=== PATIENT | male | born 1960 | race Caucasian/White ===

== ENCOUNTER 2020-01-07 08:22 | Emergency (ER) | payer BC ==
[2020-01-07] MEDS ORDERED: ONDANSETRON INJ 4 MG/2 ML VIAL IV ONE (08:37)
[2020-01-07] MEDS ORDERED: ASPIRIN (CHEWABLE) 81 MG TAB PO ONE (08:37)
[2020-01-07] MEDS ORDERED: SODIUM CHLORIDE 0.9% (FLUSH) 10 ML SYG IV PRN (08:37)
[2020-01-07] MEDS ORDERED: MORPHINE SULFATE INJ 10 MG/ML VIAL IV ONE (08:37)
[2020-01-07] MEDS: NITROGLYCERIN 0.4 MG 25 EA TAB SL PRN ×2 (08:43→09:06)
--- NOTE | 2020-01-07 08:50 | ED.PDOC ---
History of Present Illness - General Chief Complaint: Chest Pain/RI Stated Complaint: CP radiating down both arms Time Seen by Provider: 01/07/20 08:31 Source: patient, RN notes reviewed, Vital Signs reviewed Exam Limitations: no limitations - History of Present Illness Initial Comments: This is a 59-year-old male whose only significant past medical history includes multiple left shoulder surgeries and reconstructions, presenting to the emergency department today with chest pain that began around 8 AM. Pain radiates through to the back and to both arms. No previous cardiac history. He describes the pain as pressure. Pain began while at rest. He went to [place] today, but states he was too weak to lift his Bible, so he decided to come to the emergency department for evaluation. He denies any abdominal pain, vomiting, shortness of breath. No recent illnesses, cough, URI symptoms, or COVID-19 exposures. Allergies/Adverse Reactions: Allergies NO KNOWN ALLERGY Allergy (Verified 01/07/20 08:41) Home Medications: Ambulatory Orders Acetaminophen W/ Codeine [Tylenol w/Codeine 300-30 mg] 1 tab PO PRN PRN 01/07/20 Aspirin [Aspirin Enteric Coated Ad] 81 mg PO DAILY #100 tab 01/07/20 Diazepam 10 mg PO PRN PRN 01/07/20 Nabumetone 500 mg PO BID 01/07/20 RX: Nitroglycerin 0.4 mg Tab [Nitrostat] 1 ea SL .Q5M PRN #100 tab 01/07/20 Review of Systems - Review of Systems Constitutional: Denies: chills, fever EENTM: Denies: ear pain, nose congestion, throat pain Respiratory: Denies: cough, orthopnea, short of breath Cardiology: States: chest pain. Denies: edema, palpitations, syncope Gastrointestinal/Abdominal: Denies: constipation, diarrhea, nausea, vomiting Genitourinary: Denies: dysuria, hematuria Musculoskeletal: States: back pain. Denies: joint pain, joint swelling, muscle pain, muscle stiffness, neck pain Neurological: States: headache, weakness. Denies: paresthesia, pre-existing deficit, tingling Family Medical History - Family History Mother Family History: No Known Physical Exam - Physical Exam General Appearance: Alert, Comfortable Eyes, Ears, Nose, Throat Exam: PERRL/EOMI, normal ENT inspection, pharynx normal Neck: full range of motion, supple Respiratory: lungs clear, normal breath sounds, no respiratory distress, no accessory muscle use Cardiovascular/Chest: normal peripheral pulses, regular rate, rhythm, no edema, no gallop, no JVD, no murmur Peripheral Pulses: radial,right: 2+, radial,left: 2+ Gastrointestinal/Abdominal: non tender, soft Extremity: non-tender, normal inspection, no pedal edema Neurologic: no motor/sensory deficits, alert, normal mood/affect, oriented x 3 Skin Exam: normal color, warm/dry Progress - Progress Progress: 01/07/20 09:01 Pain improved with nitroglycerin and morphine. 01/07/20 11:02 Rechecked. Patient remains pain-free. Blood pressure improved. I discussed repeat EKG/troponin results. I explained that the troponin is up trended slightly, but is still within normal range. Patient at this time is adamant that he goes home. He states "I am not staying in the hospital". I explained that it is very important that he follow-up with his primary care doctor and to call a instructor hairspring in follow-up later this week. Will discharge home with aspirin and nitroglycerin. Strict warnings given to return to the emergency room for worsening chest pain, shortness of breath, recurrent weakness, nausea/vomiting, or any other concerns. DDX: ACS, pancreatitis, PUD, low supicion for PE/dissection MDM: Patient presenting with subxiphoid and lower chest pain radiating through to the back. No previous history of ACS. EKGs with nonspecific changes, troponins negative x2, although slightly uptrending. Patient was completely pain-free after nitroglycerin. I explained my concern about possible ACS, but the patient was adamant that he was going home today. He refused to stay in the hospital. I stressed the importance of follow-up with cardiology to discuss possible provocative testing later this week. Strict warnings given to return the emergency room for worsening. - Results/Orders Results/Orders: EKG reviewed by me at 8:31 AM. Normal sinus rhythm, 89, normal axis, borderline QTC at 474, nonspecific T wave changes, no ST segment elevations Repeat EKG reviewed by me at 1012. Normal sinus rhythm, rate of 65, normal axis, normal intervals, nonspecific T wave changes, no ST segment elevations or depressions. EXAM: Chest,1 View CLINICAL INDICATION: Chest pain COMPARISON: There is no previous study for comparison. FINDINGS: A single view of the chest was obtained. The heart size is normal. The pulmonary vascularity is unremarkable. The lungs are clear. There is no consolidation, infiltrate, pleural effusion, or pneumothorax. IMPRESSION: No evidence of active pulmonary disease. Laboratory Results - last 24 hr 01/07/20 01/07/20 01/07/20 08:44 08:44 08:44 WBC 5.5 Cancelled RBC 5.15 Cancelled Hgb 15.1 Cancelled Hct 44.7 Cancelled MCV 86.9 Cancelled MCH 29.3 Cancelled MCHC 33.7 Cancelled RDW 14.2 Cancelled Plt Count 255 Cancelled MPV 8.7 Cancelled Absolute Neuts (auto) 2.80 Cancelled Absolute Lymphs (auto) 2.00 Cancelled Absolute Monos (auto) 0.50 Cancelled Absolute Eos (auto) 0.10 Cancelled Absolute Basos (auto) 0.00 Cancelled Neutrophils % 51.4 Cancelled Lymphocytes % 36.8 Cancelled Monocytes % 9.8 H Cancelled Eosinophils % 1.5 Cancelled Basophils % 0.5 Cancelled Differential Comment Cancelled RBC Morphology Cancelled PT 9.9 INR 1.00 PTT (SP) 26.0 Sodium 141 Potassium 3.9 Chloride 106 Carbon Dioxide 26 Anion Gap 12.9 BUN 22 H Creatinine 1.07 BUN/Creatinine Ratio 20.6 H Random Glucose 108 H Serum Osmolality 285.1 Calcium 8.9 Magnesium 2.0 Total Bilirubin 0.8 Direct Bilirubin 0.1 Indirect Bilirubin 0.7 AST 28 ALT 34 Alkaline Phosphatase 61 Creatine Kinase 384 H* CK-MB (CK-2) 5.2 H* CK-MB (CK-2) % 1.35 Troponin I 0.02 Cancelled B-Natriuretic Peptide < 5.0 Serum Total Protein 7.1 Albumin 4.2 Globulin Cancelled Albumin/Globulin Ratio Cancelled 01/07/20 10:18 WBC RBC Hgb Hct MCV MCH MCHC RDW Plt Count MPV Absolute Neuts (auto) Absolute Lymphs (auto) Absolute Monos (auto) Absolute Eos (auto) Absolute Basos (auto) Neutrophils % Lymphocytes % Monocytes % Eosinophils % Basophils % Differential Comment RBC Morphology PT INR PTT (SP) Sodium Potassium Chloride Carbon Dioxide Anion Gap BUN Creatinine BUN/Creatinine Ratio Random Glucose Serum Osmolality Calcium Magnesium Total Bilirubin Direct Bilirubin Indirect Bilirubin AST ALT Alkaline Phosphatase Creatine Kinase CK-MB (CK-2) CK-MB (CK-2) % Troponin I 0.04 B-Natriuretic Peptide Serum Total Protein Albumin Globulin Albumin/Globulin Ratio Electronically signed by: Laron Mason MD 01/07/2020 8:55 AM CDT Departure - Departure Clinical Impression: Acute chest pain Time of Disposition: 11:06 Disposition: Discharge to Home or Self Care Departure Forms: ED Discharge - Pt. Copy, Patient Portal Self Enrollment Instructions: DI for Chest Pain Diet: resume usual diet Activity: increase activity as tolerated Referrals: Woody Phillips III, MD [Primary Care Provider] - 1-2 Days RIGO MCELROY MD [Consulting Staff] - 1-5 Days TAVON GO [Referring] - 1-5 Days Prescriptions: Aspirin [Aspirin Enteric Coated Ad] 81 mg PO DAILY #100 tab RX: Nitroglycerin 0.4 mg Tab [Nitrostat] 1 ea SL .Q5M PRN #100 tab PRN Reason: Chest Pain Home Medications: Ambulatory Orders Acetaminophen W/ Codeine [Tylenol w/Codeine 300-30 mg] 1 tab PO PRN PRN 01/07/20 Aspirin [Aspirin Enteric Coated Ad] 81 mg PO DAILY #100 tab 01/07/20 Diazepam 10 mg PO PRN PRN 01/07/20 Nabumetone 500 mg PO BID 01/07/20 RX: Nitroglycerin 0.4 mg Tab [Nitrostat] 1 ea SL .Q5M PRN #100 tab 01/07/20 Additional Instructions: Return to the emergency room immediately for worsening chest pain, shortness of breath, increased weakness, or any other concerns. Call 911 for chest pain that does not improve after 3 nitroglycerin. Follow-up with your primary doctor tomorrow to discuss cardiology referral. It is important that you see a instructor hairspring later this week to discuss outpatient stress testing.
--- NOTE | 2020-01-07 08:57 | RAD ---
EXAM: Chest,1 View CLINICAL INDICATION: Chest pain COMPARISON: There is no previous study for comparison. FINDINGS: A single view of the chest was obtained. The heart size is normal. The pulmonary vascularity is unremarkable. The lungs are clear. There is no consolidation, infiltrate, pleural effusion, or pneumothorax. IMPRESSION: No evidence of active pulmonary disease. Electronically signed by: Laron Mason MD 01/07/2020 8:55 AM CDT
[2020-01-07] MEDS ORDERED: ALUM & MAG HYDROX-SIMETHICONE 30 ML, LIDOCAINE VISCOUS 2% 15 ML PO ONE ×2 (09:35)
[2020-01-07 11:08] VITALS: BP 112/76; O2SAT 98
[2020-01-07 11:13] VITALS: TEMP 97.2
== END 2020-01-07 11:13 | disposition home or self-care (01) ==
LOC: ER 08:22
DX: R07.9 Chest pain, unspecified (principal); R53.1 Weakness; Z79.82 Long term (current) use of aspirin
CPT/HCPCS: 36415; 71045; 80048; 80076; 82550; 82553; 83880; 84484; 85025; 85610; 85730; 93005; 94760; J2270; J2405

== ENCOUNTER 2020-01-09 17:25 | Emergency (ER) | payer BC ==
[2020-01-09] MEDS ORDERED: ASPIRIN TABLET 325 MG TAB ONE (17:30)
[2020-01-09] MEDS ORDERED: ALUM & MAG HYDROX-SIMETHICONE 30 ML, LIDOCAINE VISCOUS 2% 15 ML PO ONE ×2 (17:34)
[2020-01-09] MEDS ORDERED: ASPIRIN TABLET 325 MG TAB PO ONE ×2 (17:34)
[2020-01-09] MEDS ORDERED: LIDOCAINE HCL 2% (MOUTH-THROAT) 15 ML UD ONE (17:35)
[2020-01-09] MEDS ORDERED: ALUMINUM & MAGNESIUM HYDROXIDE 30 ML UD ONE (17:35)
--- NOTE | 2020-01-09 18:26 | RAD ---
EXAM DESCRIPTION: Chest,1 View CLINICAL HISTORY: 59 years Male chest and back pain COMPARISON: 01/07/2020. FINDINGS: The cardiomediastinal silhouette appears unremarkable. No consolidating infiltrates or pleural effusions. No pneumothorax. Changes from left shoulder arthroplasty. IMPRESSION: No acute abnormality is identified. Electronically signed by: Ramiro Velazquez MD 01/09/2020 6:25 PM CDT
[2020-01-09] MEDS ORDERED: CLOPIDOGREL 75 MG TAB PO ONE (18:37)
[2020-01-09] MEDS ORDERED: NITROGLYCERIN 2% 1 GM UD TOP ONE (18:37)
[2020-01-09] MEDS ORDERED: ENOXAPARIN SODIUM 100 MG/ML SYG SUBCU ONE (18:41)
--- NOTE | 2020-01-09 18:59 | ED.PDOC ---
History of Present Illness - General Chief Complaint: Chest Pain/PR Stated Complaint: chest pain Time Seen by Provider: 01/09/20 17:26 Source: patient Exam Limitations: no limitations - History of Present Illness Initial Comments: The patient is a 59-year-old male presented emergency room secondary to the acute onset of chest pain about an hour prior to arrival. Pain is substernal and radiates to the back and both shoulders. It started while he was at rest. The patient was actually seen here 2 days ago for similar episode of chest pain. They were able to get the chest pain under control with nitroglycerin. The patient stayed for 2 sets of cardiac enzymes which were technically normal but slightly rising at the time. The patient left AGAINST MEDICAL ADVICE at that time. He had apparently not had any chest pain since his discharge until this afternoon. The patient reports he had an exercise tolerance test 5 years ago that was clean. No history of any significant coronary artery disease. No history of significant hypertension. He does have chronic pain issues related to a left shoulder surgery. The patient does take a anti-inflammatory. The patient had taken 3 nitroglycerin prior to his arrival which had taken the chest pain down from a 9 to about a 6. The patient received additional nitroglycerin here which has brought his chest pain down to around a 1. Timing/Duration: 1 hour Severity: severe Improving Factors: medication Worsening Factors: nothing Associated Symptoms: chest pain Allergies/Adverse Reactions: Allergies NO KNOWN ALLERGY Allergy (Verified 01/09/20 17:41) Home Medications: Ambulatory Orders Acetaminophen W/ Codeine [Tylenol w/Codeine 300-30 mg] 1 tab PO PRN PRN 01/07/20 Aspirin [Aspirin Enteric Coated Ad] 81 mg PO DAILY #100 tab 01/07/20 Diazepam 10 mg PO PRN PRN 01/07/20 Nabumetone 500 mg PO BID 01/07/20 Nitroglycerin 0.4 mg Tab [Nitrostat] 1 ea SL .Q5M PRN #100 tab 01/07/20 Review of Systems - Review of Systems Constitutional: States: no symptoms reported EENTM: States: no symptoms reported Respiratory: States: no symptoms reported Cardiology: States: chest pain Gastrointestinal/Abdominal: States: no symptoms reported Genitourinary: States: no symptoms reported Musculoskeletal: States: no symptoms reported Skin: States: no symptoms reported Neurological: States: no symptoms reported Endocrine: States: no symptoms reported All other Systems: No Change from Baseline Past Medical History (General) - Patient Medical History Hx Stroke: No Hx of COPD: No Hx Cardiac Disorders: No Hx Hypertension: No Hx Diabetes: No Hx Gastroesophageal Reflux: Yes Hx Cancer: No - Vaccination History Hx Tetanus, Diphtheria Vaccination: No Hx Influenza Vaccination: Yes Hx Pneumococcal Vaccination: No - Social History Hx Tobacco Use: No Hx Alcohol Use: No Hx Substance Use: No Hx Substance Use Treatment: No Hx Depression: No - Female History Patient : No Family Medical History - Family History Mother Family History: No Known Physical Exam - Physical Exam General Appearance: Alert, Anxious Eye Exam: bilateral normal Ears, Nose, Throat: hearing grossly normal, normal pharynx Neck: non-tender, supple Respiratory: lungs clear, normal breath sounds, no respiratory distress, no accessory muscle use Cardiovascular/Chest: normal peripheral pulses, regular rate, rhythm, no edema Peripheral Pulses: radial,right: 2+, radial,left: 2+ Gastrointestinal/Abdominal: non tender, soft Rectal Exam: deferred Back Exam: no CVA tenderness, no vertebral tenderness Extremity: normal range of motion - Given chronic limitations., normal inspection, no pedal edema, normal capillary refill Neurologic: roll forger II-XII nml as tested, alert, normal mood/affect, oriented x 3 Skin Exam: normal color Comments: Vital Signs - 24 hr 01/09/20 01/09/20 17:37 17:42 Temperature 98.4 F Pulse Rate [ 79 79 montoir] Respiratory 18 Rate Blood Pressure 107/69 [RA] O2 Sat by Pulse 97 Oximetry Progress - Progress Progress: 01/09/20 19:01 The patient is a 59-year-old male presented emergency room with chest pain that appears to be a non-ST elevation myocardial infarction. The patient was seen 2 days ago with chest pain. His troponin is significantly higher than it was at that time. Chest pain has greatly improved with frequent nitroglycerin dosage him. Patient is also been given a dose of aspirin, Lovenox and high-dose Plavix. The patient's vital signs are stable. The patient is being transferred to [facility] for cardiology evaluation. Acceptance is appreciated. The patient is refusing to go by ambulance at this time. Risks have been explained and i do disagree with his decision. His will be driving him. The nitroglycerin paste will be left in place. They do have instructions to remove it if he starts getting dizzy. patient has been discussed with dr dunn for the transfer. rufino chang [id number] - Results/Orders Results/Orders: 01/09/20 17:50 Telemetry .CONTINUOUS 01/09/20 18:00 EKG STAT Laboratory Results - last 24 hr 01/09/20 01/09/20 01/09/20 18:13 18:13 18:13 WBC 5.9 RBC 4.88 Hgb 14.3 Hct 42.5 MCV 87.2 MCH 29.4 MCHC 33.7 RDW 13.8 Plt Count 243 MPV 8.3 Absolute Neuts (auto) 3.00 Absolute Lymphs (auto) 2.20 Absolute Monos (auto) 0.60 Absolute Eos (auto) 0.10 Absolute Basos (auto) 0.10 Neutrophils % 50.5 Lymphocytes % 37.2 Monocytes % 9.9 H Eosinophils % 1.4 Basophils % 1.0 PT 10.0 INR 1.01 PTT (SP) 26.1 D-Dimer, Quantitative < 131 L Sodium 137 Potassium 4.6 Chloride 104 Carbon Dioxide 27 Anion Gap 10.6 L BUN 19 H Creatinine 0.90 BUN/Creatinine Ratio 21.1 H Random Glucose 93 Serum Osmolality 275.8 Calcium 9.1 Magnesium 2.0 Total Bilirubin 0.7 AST 23 ALT 31 Alkaline Phosphatase 55 Creatine Kinase 148 CK-MB (CK-2) 2.5 CK-MB (CK-2) % Not Reportable Troponin I 0.17 H* B-Natriuretic Peptide < 5.0 Serum Total Protein 6.8 Albumin 4.1 Globulin 2.7 Albumin/Globulin Ratio 1.5 Amylase 63 Lipase 33 EKG shows normal sinus rhythm at 79 bpm. Normal axis. Normal R wave progression. Possibly trace ST segment depression in V2 and V3. Borderline QT interval. No evidence of ST segment elevation. Chest x-ray shows no acute pathology. See report for details. Departure - Departure Clinical Impression: NSTEMI (non-ST elevated myocardial infarction) Disposition: Transfer to Hospital Condition: Serious Departure Forms: ED Discharge - Pt. Copy, Patient Portal Self Enrollment Referrals: Woody Phillips III, MD [Primary Care Provider] - 1-2 Weeks Home Medications: Ambulatory Orders Acetaminophen W/ Codeine [Tylenol w/Codeine 300-30 mg] 1 tab PO PRN PRN 01/07/20 Aspirin [Aspirin Enteric Coated Ad] 81 mg PO DAILY #100 tab 01/07/20 Diazepam 10 mg PO PRN PRN 01/07/20 Nabumetone 500 mg PO BID 01/07/20 Nitroglycerin 0.4 mg Tab [Nitrostat] 1 ea SL .Q5M PRN #100 tab 01/07/20 Transfer to Outside Facility - Transfer Information Decision to Transfer Date: 01/09/20 Decision to Transfer Time: 19:07 Reason for Transfer: required specialist not available Accepting Provider:: dr dunn Accepting Facility: [facility]
[2020-01-09 20:44] VITALS: BP 118/75; TEMP 98.6; O2SAT 97
== END 2020-01-09 20:44 | disposition short-term general hospital (02) ==
LOC: ER 17:25
DX: I21.4 Non-ST elevation (NSTEMI) myocardial infarction (principal); K21.9 Gastro-esophageal reflux disease without esophagitis; Z79.82 Long term (current) use of aspirin
CPT/HCPCS: 36415; 71045; 80053; 82150; 82550; 82553; 83690; 83735; 83880; 84484; 85025; 85379; 85610; 85730; 93005; J1650